=== PATIENT | male | born 1975 | race Caucasian/White ===

== ENCOUNTER 2023-07-21 14:32 | Emergency (ER) | payer OTHER ==
[2023-07-21 14:43] VITALS: BP 122/80; PULSE 54; RESP 18; TEMP 97.8; BMI 25.7
[2023-07-21] MEDS: KETOROLAC TROMETHAMINE 30 MG/1 ML VIAL IM ONE (15:35)
[2023-07-21] MEDS ORDERED: KETOROLAC TROMETHAMINE 30 MG/1 ML VIAL ONE (15:35)
== END 2023-07-21 18:45 | disposition home or self-care (01) ==
LOC: JER 14:32
PROC: 3E0233Z Introduction of Anti-inflammatory into Muscle, Percutaneous Approach (ICD-10-PCS; principal; 2023-07-21)
DX: S22.32XA Fracture of one rib, left side, initial encounter for closed fracture (principal); Y93.75 Activity, martial arts
CPT/HCPCS: 71046-TC-FY; 71250-TC; 99284-25